=== PATIENT | female | born 1960 | race Caucasian/White ===

== ENCOUNTER → 2017-04-15 | Outpatient (CLI) | payer OTHER ==
[~2017-04-15] MED LIST: FLAGYL-DPS500 MG PO; HABITROL DPS7 MG TD; OMEPRAZOLE40 MG PO; ONDANSETRON ODT8 MG PO; PERCOCET 10 DPS1 TAB PO; PERCOCET 5 DPS1 TAB PO; PERCOCET 7.5 DP1 TAB PO; TYLENOL EXTRA500 M1 PO
== END | disposition home or self-care (01) ==
LOC: RAD.S 10:25
DX: M54.5 Low back pain (principal); M47.896 Other spondylosis, lumbar region